=== PATIENT | female | born 1980 | race Caucasian/White ===

== ENCOUNTER 2016-12-14 09:58 | Outpatient (CLI) | payer OTHER ==
[~2016-12-14] VITALS: Ht 170.2 cm; Wt 95.3 kg
[~2016-12-14 09:58] MED LIST: DEPO INJECTION IM; HYDR-3820 PO; IBUP-15 PO; IBUP-1780 PO; LORA-404 PO; NAPR550T PO; SULF1TAB38 PO
--- OUTSIDE RECORDS SUMMARY | 2016-12-14 10:01 | XMS REPORT ---
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
[2016-12-14] MEDS ORDERED: NORG1TAB7 PO (10:09)
[2016-12-14] MEDS ORDERED: LORA-404 PO (10:09)
[2016-12-14] MEDS ORDERED: CITA20TA12 PO (10:09)
[2016-12-14 10:16] VITALS: BP 133/85
[2016-12-14 10:55] LABS: BASOPHILS % (AUTO) 0 % (0-10); EOSINOPHILS # (AUTO) 0.1 10^3/uL (0.0-0.3); EOSINOPHILS % (AUTO) 2 % (0-10); LYMPHOCYTES # (AUTO) 2.6 X 10^3 (1.0-4.0); LYMPHOCYTES % (AUTO) 32 % (12-44); MEAN CORPUSCULAR HEMOGLOBIN 31 PG (25-34); MEAN CORPUSCULAR HGB CONC 34 G/DL (32-36); MEAN CORPUSCULAR VOLUME 90 FL (80-99); MEAN PLATELET VOLUME 10.5 FL (7.4-10.4); MONOCYTES # (AUTO) 0.5 X 10^3 (0.0-1.0); MONOCYTES % (AUTO) 6 % (0-12); NEUTROPHILS # (AUTO) 4.9 X 10^3 (1.8-7.8); NEUTROPHILS % (AUTO) 60 % (42-75); PLATELET COUNT 295 10^3/uL (130-400); RED BLOOD COUNT 4.13 10^6/uL (4.35-5.85); RED CELL DISTRIBUTION WIDTH 12.2 % (10.0-14.5); WHITE BLOOD COUNT 8.1 10^3/uL (4.3-11.0)
[2016-12-15] MEDS ORDERED: IBUP-1773 PO (08:28)
[2016-12-15] MEDS ORDERED: ACET-789 PO (08:28)
== END 2016-12-14 11:01 | disposition home or self-care (01) ==
LOC: PREOP 09:58
PROVIDERS: ATTEND Obstetrics & Gynecology
DX: Z01.812 Encounter for preprocedural laboratory examination (principal); Z11.2 Encounter for screening for other bacterial diseases; N93.9 Abnormal uterine and vaginal bleeding, unspecified
CPT/HCPCS: 36415; 85025; 86850; 86900; 86901; 87081

== ENCOUNTER 2016-12-15 07:01 | Day surgery (SDC) | payer SELFPAY ==
[~2016-12-15] VITALS: Ht 170.2 cm; Wt 95.3 kg
[~2016-12-15 07:01] MED LIST changes: +CITA20TA12 PO; +NORG1TAB7 PO
[2016-12-15] MEDS ORDERED: SEVOFLURANE (ULTANE) 15 ML INHAL SOLN ONE ×2 (07:14→07:56)
[2016-12-15] MEDS ORDERED: DEXAMETHASONE PF 10 MG/ML (DECADRON) VIAL ONE (07:14)
[2016-12-15] MEDS ORDERED: LIDOCAINE PF 2% 10 ML (XYLOCAINE) AMP ONE (07:14)
[2016-12-15] MEDS ORDERED: proPOfol 200 MG/20 ML (DIPRIVAN) VIAL IV ONE (07:14)
[2016-12-15] MEDS ORDERED: fentaNYL INJECTION 100 MCG/2 ML AMP ONE (07:14)
[2016-12-15] MEDS ORDERED: MIDAZOLAM 2 MG/2 ML (VERSED) VIAL IV ONE (07:15)
[2016-12-15] MEDS ORDERED: ONDANSETRON 4 MG/2 ML (SDV) Z0FRAN IV ONE (07:15)
[2016-12-15] MEDS ORDERED: FAMOTIDINE 20MG/2ML IV (PEPCID) IV ONE (07:15)
[2016-12-15 07:20] VITALS: BP 119/92
[2016-12-15] MEDS: LACTATED RINGERS 1,000 ML IV PRN ×2 (07:25→08:04)
[2016-12-15] MEDS ORDERED: KETOROLAC 30 MG/ML VIAL ONE (07:53)
[2016-12-15] MEDS ORDERED: LACTATED RINGERS 1,000 ML IV ONE (07:56)
[2016-12-15] MEDS ORDERED: BUPIVACAINE 0.25% 30 ML (SENSORCAINE) VIAL ONE (08:24)
--- NOTE | 2016-12-15 08:25 | Progress Note-Post Operative ---
Post-Operative Progess Note Outpatient Pharmacy Manager none Pre-Operative Diagnosis ABNORMAL UTERINE BLEEDING Post-Operative Diagnosis same Post-Op Procedure Note Date of Procedure: Dec 15, 2016 Name of Procedure: D and C Hysteroscopy Procedure Note/Findings see dictation Anesthesia Type GETA Estimated blood loss (mL): min Specimen(s) collected endometrial curettings MIRACLE CENTENO DO Dec 15, 2016 8:25 am
[2016-12-15] MEDS ORDERED: IBUP-1773 PO (08:28)
[2016-12-15] MEDS ORDERED: ACET-789 PO (08:28)
[2016-12-15] MEDS ORDERED: fentaNYL INJECTION 250 MCG/5 ML AMP IV PRN (08:30)
[2016-12-15] MEDS ORDERED: ONDANSETRON 4 MG/2 ML (SDV) Z0FRAN IV PRN (08:30)
[2016-12-15] MEDS ORDERED: morphine INJ 10 MG/ML 1ML (SYR OR VIAL) IV PRN (08:30)
--- NOTE | 2016-12-15 08:33 | Discharge Inst-Women's Service ---
Discharge Inst-Women's Serv Depart Medication/Instructions New, Converted or Re-Newed RX: RX on Chart Consults/Follow Up Additional Follow Up: Yes Activity Activity: Activity as Tolerated Driving Instructions: You May Drive (do not drive while taking codiene) NO SMOKING: NO SMOKING Nothing Inside Vagina: No Douching, No [place], No Tampons Diet Discharge Diet: No Restrictions Symptoms to Report to : Bleeding Excessive, Pain Increased, Fever Over 101 Degrees F, Vaginal Bleeding Increase, Questions/Concerns For Any Problems or Questions: Contact Your Physician Skin/Wound Care Bathing Instructions: Shower (x 2 weeks) MIRACLE CENTENO DO Dec 15, 2016 8:33 am
[2016-12-15] MEDS ORDERED: ONDANSETRON 4 MG/2 ML (SDV) Z0FRAN ONE (08:41)
[2016-12-15 09:20] VITALS: BP 118/77
[2016-12-15] MEDS ORDERED: IBUPROFEN 600 MG (MOTRIN) TAB PO ONE (09:30)
[2016-12-15] MEDS ORDERED: APAP 300 MG/CODEINE 30 MG (TYLENOL #3) TAB PO PRN (09:30)
[2016-12-15 09:50] VITALS: BP 117/71
[2016-12-15 10:20] VITALS: BP 109/64
--- NOTE | 2016-12-16 11:00 | OPERATIVE REPORT ---
PROCEDURE PHYSICIAN: MIRACLE CENTENO DATE OF PROCEDURE: 12/15/2016 PREOPERATIVE DIAGNOSIS: 1. 36 year-old female with abnormal uterine bleeding. 2. Obesity POSTOPERATIVE DIAGNOSES: 1. 36-year-old female with abnormal uterine bleeding. 2. Obesity. PROCEDURE: D&C with video hysteroscopy. SURGEON: Dr. Miracle Centeno. ANESTHESIA: General endotracheal. ESTIMATED BLOOD LOSS: Minimal. URINE OUTPUT: 100 mL, clear at the end of the procedure. FLUIDS: 1300 mL lactated ringer solution. FINDINGS: Findings is a normal size uterus on bimanual examination with normal appearing cervix and no adnexal fullness or masses appreciated on bimanual examination. Multiple polypoid-type structures and thickening of the posterior wall of the endometrial cavity, bilateral patent tubal ostia. SPECIMEN SENT: Endometrial curettings. INDICATIONS FOR THE PROCEDURE: This 36-year-old female is a patient I have seen in my office and established care. She underwent annual exam earlier last year and was found to be having heavy bleeding issues. At that point, a workup was then performed. The patient was also having some other psychiatric issues at that time and began seeking counseling and care with the [facility] for those. She then returned to my office yesterday in much better spirits and saying that she has been better since going to counseling, however, continued to have heavy bleeding issues. She does report to occasionally smoke from time to time, which would defer me from attempting oral contraceptive as treatment option with the patient. She also describes passing these very large blood clots that actually push tampons out so she is having a very difficult time on a day-to-day life living with this ongoing issue. I discussed the patient proceeding with D&C with a video hysteroscopy to rule out any endometrial etiology for the causes of her bleeding, however, I did discuss with the patient it may be due to her weight status, affecting the physiology of cycling of the lining of the uterus. The risks of the procedure as well this procedure itself in detail were discussed with the patient in detail including risk of bleeding, infection, damaging any surrounding structures, including but not limited to the bowel, bladder, ureter, kidneys, risk for uterine perforation, risk from anesthesia, need for blood transfusion, possible laparotomy and even were all discussed with the patient. After all of her questions were answered consent was obtained in the preoperative area. The patient was taken the operating room. OPERATIVE REPORT IN DETAIL: Once in the operating room, general anesthesia was found to be adequate. She was placed in dorsal lithotomy position, prepped and draped in normal sterile fashion. A weighted speculum was inserted patient's vagina after a bimanual examination was performed with the findings above. A right angle retractor was used to visualize the cervix. It was grasped at 12 o'clock position using long Allis clamp. I then perform a paracervical block at 3 and 9 o'clock positions on the cervix. Care was taken to aspirate before injecting. A total of 10 mL are used. I then proceed with sounding the uterine cavity which was found to be approximately 8 cm. I then gently dilate the cervix using Hegar dilator to a maximum dilatation of approximately 6 mm at which point I advance a hysteroscope into the endometrial cavity and use normal saline as my visual medium to visualize the findings above, which includes posterior uterine wall endometrial polyps. These are cleared using an endometrial curette after the hysteroscope is removed. The curetting tissue is sent as endometrial curettings. I then circumferentially clear all the lining of the of the endometrial wall using a gentle curetting method and then take one last look at the endometrial canal which is found to be clear of the previously existing thickened endometrium and posterior wall polyps. I then deem the procedure complete. I remove all the instruments from the patient's vagina. The patient tolerated the procedure well. She was taken to the recovery area in stable condition. Lap and sponge counts correct at the end of the procedure, instrument count was correct as well. Job ID: [id number] Dictated Date: 12/15/2016 08:44:02 Oxyacetylene Cutter Date: 12/16/2016 10:46:00 / laisha
== END 2016-12-15 10:55 | disposition home or self-care (01) ==
LOC: SDC 07:01
PROVIDERS: ATTEND Obstetrics & Gynecology
DX: N93.9 Abnormal uterine and vaginal bleeding, unspecified (principal); E66.9 Obesity, unspecified; Z68.32 Body mass index [BMI] 32.0-32.9, adult
CPT/HCPCS: 84703; 94664